=== PATIENT | male | born 1970 | race Caucasian/White ===

== ENCOUNTER 2016-05-24 16:30 | Emergency (ER) | payer OTHER, BC ==
[~2016-05-24] VITALS: Ht 177.8 cm; Wt 86.4 kg
[2016-05-24 16:59] VITALS: BP 135/85; PULSE 102; RESP 16; TEMP 98; O2SAT 96
[2016-05-24 18:36] LABS: AMPHETAMINE, URINE NEG (NEG); BARBITURATES, URINE NEG (NEG); COCAINE, URINE NEG (NEG)
[2016-05-24 18:47] LABS: ALKALINE PHOSPHATASE 90 U/L (45-117); TOTAL BILIRUBIN ADULT 0.5 MG/DL (0.2-1.0)
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
[2016-05-24 18:51] LABS: AUTOMATED NEUTROPHIL # 5.4 TH/MM3 (1.8-7.7); BASOPHIL # 0.1 TH/MM3 (0-0.2); EOSINOPHIL # 0.1 TH/MM3 (0-0.4); EOSINOPHIL % 0.7 % (0.0-4.0); HEMATOCRIT 42.5 % (39.0-51.0); LYMPHOCYTE # 1.7 TH/MM3 (1.0-4.8); MEAN CELL VOLUME 82.1 FL (80.0-100.0); MEAN CORPUSCULAR HEMOGLOBIN 28.3 PG (27.0-34.0); MEAN CORPUSCULAR HGB CONC 34.5 % (32.0-36.0); MONO % 4.1 % (0.0-8.0); NEUT % 72.2 % (16.0-70.0); PLATELET COUNT 220 TH/MM3 (150-450); RED BLOOD COUNT 5.18 MIL/MM3 (4.50-5.90); RED CELL DISTRIBUTION WIDTH 13.3 % (11.6-17.2); WHITE BLOOD COUNT 7.5 TH/MM3 (4.0-11.0)
[2016-05-24 18:53] LABS: HEMO FLAGS AUTO DIFF
[2016-05-24 18:54] LABS: ALT (GPT) 46 U/L (12-78); ANION GAP 9 MEQ/L (5-15); AST (GOT) 33 U/L (15-37); BICARBONATE 24.9 MEQ/L (21.0-32.0); BLOOD UREA NITROGEN 13 MG/DL (7-18); CHLORIDE 104 MEQ/L (98-107); GLOMERULAR FILTRATION RATE 104 ML/MIN (>89); SODIUM (NA) 138 MEQ/L (136-145)
[2016-05-24 18:55] LABS: POTASSIUM 4.6 MEQ/L (3.5-5.1)
[2016-05-24] MEDS ORDERED: LORazepam 2 MG TAB PO PRN (19:30)
[2016-05-24] MEDS ORDERED: LORazepam 2 MG/ML VIAL IV PUSH PRN ×4 (19:30)
[2016-05-24] MEDS ORDERED: ONDANSETRON ODT 4 MG TAB PO PRN (19:30)
[2016-05-24] MEDS ORDERED: LORazepam 1 MG TAB PO PRN (19:30)
[2016-05-24] MEDS ORDERED: FLUMAZENIL 0.5 MG/5 ML VIAL IV PUSH PRN (19:30)
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
[2016-05-24 20:03] LABS: PLATELET ESTIMATE SMEAR NORMAL (NORMAL); PLATELET MORPHOLOGY NORMAL (NORMAL); SCAN/DIFF AUTO DIFF CONFIRMED
[2016-05-24] MEDS ORDERED: LISI2.5T3 PO (20:23)
[2016-05-24] MEDS ORDERED: AMLO2.5T PO (20:23)
[2016-05-24] MEDS ORDERED: FLUO-1 PO (20:23)
[2016-05-24 22:36] VITALS: BP 134/74; PULSE 96; RESP 18; TEMP 97.4; O2SAT 96
[2016-05-25 02:10] VITALS: BP 146/73; PULSE 85; RESP 18; TEMP 97.4; O2SAT 95
[2016-05-25 06:12] VITALS: BP 140/96; PULSE 74; RESP 18; TEMP 97.5; O2SAT 98
== END 2016-05-25 10:02 ==
LOC: NEDAMB 16:30 → NEPJ 05-25 10:02
DX: S09.90XA Unspecified injury of head, initial encounter (principal); F33.1 Major depressive disorder, recurrent, moderate; F10.10 Alcohol abuse, uncomplicated; V49.49XA Driver injured in collision with other motor vehicles in traffic accident, initial encounter; Y93.89 Activity, other specified; Y92.410 Unspecified street and highway as the place of occurrence of the external cause
CPT/HCPCS: 70450; 80053; 80307; 85025